=== PATIENT | female | born 1935 | race Caucasian/White ===

== ENCOUNTER 2022-04-11 09:36 | Outpatient (CLI) | payer MEDICARE, SELFPAY ==
[2022-04-11 11:56] LABS: Basophils Absolute Auto 0.1 K/mm3 (0.0-0.1); Basophils Percent Auto 0.9 % (0.2-1.2); Eosinophils Absolute Auto 0.5 K/mm3 (0-0.3); Eosinophils Percent Auto 6.6 % (0-4.4); Hematocrit 46.1 % (37.0-47.0); Hemoglobin 14.6 g/dL (12.0-15.0); Immature Granulocyte Absolute 0.02 K/mm3 (0.00-0.031); Immature Granulocyte Percent A 0.3 % (0-0.5); Lymphocytes Absolute Auto 1.72 K/mm3 (0.9-3.2); Mean Corpuscular HGB Conc 31.7 g/dl (32-36); Mean Corpuscular Volume 94.9 fl (80-100); Mean Platelet Volume 10.4 fl (7.4-10.4); Monocytes Absolute Auto 0.8 K/mm3 (0.1-0.6); Monocytes Percent Auto 10.5 % (2.6-8.5); Neutrophils Absolute Auto 4.7 K/mm3 (1.3-6.7); Neutrophils Percent Auto 59.7 % (45.5-73.1); Platelet Count Result 254 k/mm3 (150-375); Red Blood Count 4.86 M/mm3 (4.2-5.4); Red Cell Distribution Width 12.8 % (11.5-14.5); White Blood Count 7.8 K/mm3 (4.5-10.0)
[2022-04-11 12:09] LABS: Albumin Level 4.1 g/dL (3.5-5.1); Anion Gap 13 mmol/L (8-16); Blood Urea Nitrogen 12 mg/dL (7-17); Carbon Dioxide 27 mmol/L (22-30); Chloride 103 mmol/L (98-107); Estimated Glomerular Filt Rate > 60; Glucose 96 mg/dL (65-110); Sodium 143 mmol/L (137-145)
[2022-04-11 12:37] LABS: Hemoglobin A1C 5.8 % (<5.7)
[2022-04-11 12:39] LABS: Urine Cotinine NEGATIVE
== END 2022-04-11 09:37 | disposition home or self-care (01) ==
PROVIDERS: PCP Pediatrics; Visit Provider Orthopaedic Surgery
DX: M17.11 Unilateral primary osteoarthritis, right knee (principal); Z01.818 Encounter for other preprocedural examination
CPT/HCPCS: 80048; 80307; 82040; 83036; 85025; 87081

== ENCOUNTER 2022-04-30 01:32 | Day surgery (SDC) | payer MEDICARE, SELFPAY ==
[2022-04-11 10:23] VITALS: BP 171/87; PULSE 90; RESP 16; TEMP 37.4; O2SAT 97; BMI 25.7
--- NOTE | 2022-04-11 10:47 | PC.NURSE ---
Report to the Outpatient Waiting Room, entrance under the green pavilion located off [facility], at time __10:00AM on date __04/30/22 . Planned Procedure Time: _12:00PM . Time changes happen often and if your time is changed the preop area will call you the afternoon before. - You and your visitor will be asked to self-screen and do not enter if you have any COVID symptoms. - We encourage only one visitor and NO visitors under age 16 are allowed at this time. Your visitor will receive communication by the phone number that is given day of service. - The patient visitor is requested to social distance or may leave the building when not with patient due to restrictions. - A mask is required within the hospital. Patients may have clear liquids (water, carbonated beverages, clear teas, apple juice) until 3 hours prior to surgery with a maximum of 20 ounces. - No food from midnight until time of surgery Take the following medications with a SIP of water the morning of surgery: ___TYLENOL NEEDED Medications to discontinue per physician __HOLD EXCEDRIN, ALEVE AND ALL VITAMINS/SUPPLEMENTS 7 DAYS PRE-OP PER DR VINCENT Date to take last dose____04/23/22 Please no make-up, nail kosovan, hairspray, perfume, deodorant, or body powder the day of surgery. No jewelry (including any body piercings) or valuables the day of surgery, leave them at home. Please take a shower or bath the night before, or the morning of, surgery with an antibacterial soap. Wear comfortable, loose fitting clothing. Children are encouraged to wear pajamas. - Jewelry must be removed prior to entering the operating room. Rings and piercings that are not removed may be cut off. - The hospital will not accept responsibility for valuables. - Please leave all valuables, including medications, at home the day of surgery. If you are going home after surgery, a licensed sprinkling truck driver must drive you home. - NO public transportation without another adult. - We recommend that an adult stay with you for 24 hours following discharge. - We also recommend that you do not drive, make important decision, drink alcoholic beverages, or take any drugs that were not prescribed by your health care provider for at least 24 hours after your discharge time. Follow any additional instructions given to you from your surgeon. If you or anyone in your household have experienced Covid symptoms in the past week, please notify your surgeon or the nurse liaison at the phone number below for possible testing. Telephone instructions given to _PATIENT and asked if any additional questions and then verbalized understanding. Patient advised to call surgeon office or pre surgery nurse liaison [phone] if any additional questions. If you or anyone in your household have experienced Covid symptoms in the past week, please notify your surgeon or the nurse liaison at the phone number below for possible testing. Telephone instructions given to and asked if any additional questions and then verbalized understanding. Patient advised to call surgeon office or pre surgery nurse liaison [phone] if any additional questions.
[2022-04-30] VITALS (14 sets, daily range): BP systolic 99–160; BP diastolic 40–76; PULSE 80–101; RESP 8–20; TEMP 36.7–37.7; O2SAT 90–98
--- NOTE | ~2022-04-30 | XR_ITS ---
EXAMINATION: XR knee RT 2V DATE: 04/30/2022 15:43 INDICATION: Postoperative evaluation following right total knee arthroplasty. TECHNIQUE: Anteroposterior and lateral views of the right knee were obtained. COMPARISON: None. FINDINGS: Right total knee arthroplasty without patellar resurfacing appears well seated and in near anatomic a lignment. No fractures identified. Expected postoperative subcutaneous and intra-articular gas. IMPRESSION: 1. Right total knee arthroplasty, negative for postoperative purposes. Reviewed, dictated and finalized at location B. EY OPERATOR
--- NOTE | 2022-04-30 07:31 | WPDANESEPPF ---
Anes - Initial Pre Proc Eval Procedure: Operation Date: 04/30/22 12:00 Proposed Procedures p Right Total Knee Arthroplasty - Jose A Hernandez MD Date/Time: 04/30/22 07:31 Surgeon: Jose A Hernandez MD Pre Op Diagnosis: OA Right Knee Patient Data Age: 86 Gender: F Height: 1.68 m Weight: 72.5 kg Last Vital Signs Temp 37.4 C 04/11/22 10:23 Pulse 90 04/11/22 10:23 Resp 16 04/11/22 10:23 BP 171/87 H 04/11/22 10:23 Pulse Ox 97 04/11/22 10:23 O2 Del Method Room Air 04/11/22 10:23 Allergies Allergy/AdvReac Type Severity Reaction Status Date / Time amoxicillin Allergy Mild Rash Verified 04/30/22 10:11 clavulanic acid Allergy Mild Rash Verified 04/30/22 10:11 [From Augmentin] iohexol Allergy Mild Hives Verified 04/30/22 10:11 [From contrast - CT, X-RAY] cephalexin AdvReac Mild YEAST Verified 04/30/22 10:11 INFECTION Home Medications Medication Instructions Recorded Confirmed Type L.acidophilus,rhamnosus-B.breve-S.thermophilus 2 tablet PO DAILY 04/11/22 04/30/22 History 3 billion cell chew tab acetaminophen 500 mg tablet 1,000 mg PO Q6H PRN Pain 04/11/22 04/30/22 History acetaminophen 650 mg 650 mg PO Q12H PRN Pain 04/11/22 04/30/22 History tablet,extended release (Tylenol Arthritis Pain) amitriptyline 10 mg tablet 20 mg PO HS 04/11/22 04/30/22 History acexepg-xclqowqzvgxpf-orswplxu 250 2 tablet PO Q4-6H PRN Pain 04/11/22 04/30/22 History mg-250 mg-65 mg tablet (Excedrin Migraine) calcium 600 mg capsule 600 mg PO BID 04/11/22 04/30/22 History calcium carbonate 200 mg calcium 200 mg PO BID PRN Indigestion 04/11/22 04/30/22 History (500 mg) chewable tablet (Tums) coenzyme Q10 200 mg capsule (Co 200 mg PO DAILY 04/11/22 04/30/22 History Q-10) docusate sodium 100 mg capsule 300 mg PO DAILY PRN Constipation 04/11/22 04/30/22 History (Stool Softener) elderberry fruit 200 mg capsule 100 mg PO BID 04/11/22 04/30/22 History inulin 2.5 gram chewable tablet 5 g PO DAILY 04/11/22 04/30/22 History magnesium 200 mg tablet 400 mg PO DAILY 04/11/22 04/30/22 History naproxen sodium 220 mg capsule 440 mg PO BID PRN Pain 04/11/22 04/30/22 History (Aleve) omega 3-jnj-flp-fish oil 1,000 mg 1 cap PO DAILY 04/11/22 04/30/22 History (120 mg-180 mg) capsule (Fish Oil) omeprazole 20 mg capsule,delayed 20 mg PO BID 04/11/22 04/30/22 History release simvastatin 20 mg tablet 30 mg PO DAILY 04/11/22 04/30/22 History Patient hx anesthesia problems: none Family hx anesthesia problems: none Results Review: All pre-operative results and documents have been reviewed as part of the pre-operative evaluation. [facility] Past Medical History Medical History (Updated 04/30/22 @ 07:33 by Nader Brooks MD) Arthritis Chronic GERD Hyperlipidemia Social History Social History Smoking packs per day: 0.5 Smoking cigarettes per day: 10.0 Years smoked: 12 Smoking pack-years: 6.00 Smoking status: Former smoker Tobacco type: cigarettes Smoking end date: 12/14/95 Alcohol intake: current Substance use: never Living arrangements: alone Spiritual care concerns: No Anes - Eval Final PreProcedure Day of Procedure 04/30/22 07:31 Patient weight: normal Heart: regular rate and rhythm Lungs: clear to auscultation and normal air movement Airway: Mallampati scale class II Neurological: alert and oriented Last oral intake: >/= 8 hours ASA classification: II Emergent: no Anesthetic plan: proceed Anesthesia type and monitoring: general LMA Results Review: All pre-operative results and documents have been reviewed as part of the pre-operative evaluation. Informed Consent: The patient's anesthetic plan and its attendant risks and benefits were discussed with the patient/family/POA. Questions were solicited and answers provided to the satisfaction of the patient/family/POA.
--- NOTE | 2022-04-30 07:45 | PM.IMHP ---
H&P: HPI History of Present Illness Date/Time: 04/30/22 07:45 Chief Complaint: Right knee DJD Narrative: 86-year-old female who presents today for right total knee arthroplasty. She has been having pain in the right knee for years. 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 She had a cortisone injection in the knee in November she has also been on anti-inflammatories for long period time. She has not had satisfactory improvement her symptoms. She has severe medial compartment osteoarthritis in the right knee. She feels she would rather proceed with total knee arthroplasty at this point continue nonsurgical treatment Review of Systems Review of Systems: All systems reviewed & are unremarkable except as noted in HPI and below PMFSH Past Medical History Medical History (Updated 04/30/22 @ 07:33 by Nader Brooks MD) Arthritis Chronic GERD Hyperlipidemia Social History Social History Smoking packs per day: 0.5 Smoking cigarettes per day: 10.0 Years smoked: 12 Smoking pack-years: 6.00 Smoking status: Former smoker Tobacco type: cigarettes Smoking end date: 12/14/95 Alcohol intake: current Substance use: never Living arrangements: alone Spiritual care concerns: No Meds Home Medications and Allergies Home Medications Medication Instructions Recorded Confirmed Type L.acidophilus,rhamnosus-B.breve-S.thermophilus 2 tablet PO DAILY 04/11/22 04/30/22 History 3 billion cell chew tab acetaminophen 500 mg tablet 1,000 mg PO Q6H PRN Pain 04/11/22 04/30/22 History acetaminophen 650 mg 650 mg PO Q12H PRN Pain 04/11/22 04/30/22 History tablet,extended release (Tylenol Arthritis Pain) amitriptyline 10 mg tablet 20 mg PO HS 04/11/22 04/30/22 History fjpptor-cdkvodbaqbnth-qxqbwknq 250 2 tablet PO Q4-6H PRN Pain 04/11/22 04/30/22 History mg-250 mg-65 mg tablet (Excedrin Migraine) calcium 600 mg capsule 600 mg PO BID 04/11/22 04/30/22 History calcium carbonate 200 mg calcium 200 mg PO BID PRN Indigestion 04/11/22 04/30/22 History (500 mg) chewable tablet (Tums) coenzyme Q10 200 mg capsule (Co 200 mg PO DAILY 04/11/22 04/30/22 History Q-10) docusate sodium 100 mg capsule 300 mg PO DAILY PRN Constipation 04/11/22 04/30/22 History (Stool Softener) elderberry fruit 200 mg capsule 100 mg PO BID 04/11/22 04/30/22 History inulin 2.5 gram chewable tablet 5 g PO DAILY 04/11/22 04/30/22 History magnesium 200 mg tablet 400 mg PO DAILY 04/11/22 04/30/22 History naproxen sodium 220 mg capsule 440 mg PO BID PRN Pain 04/11/22 04/30/22 History (Aleve) omega 7-kqk-dzk-fish oil 1,000 mg 1 cap PO DAILY 04/11/22 04/30/22 History (120 mg-180 mg) capsule (Fish Oil) omeprazole 20 mg capsule,delayed 20 mg PO BID 04/11/22 04/30/22 History release simvastatin 20 mg tablet 30 mg PO DAILY 04/11/22 04/30/22 History Allergies Allergy/AdvReac Type Severity Reaction Status Date / Time amoxicillin Allergy Mild Rash Verified 04/30/22 10:11 clavulanic acid Allergy Mild Rash Verified 04/30/22 10:11 [From Augmentin] iohexol Allergy Mild Hives Verified 04/30/22 10:11 [From contrast - CT, X-RAY] cephalexin AdvReac Mild YEAST Verified 04/30/22 10:11 INFECTION Exam Narrative: 86-year-old female alert pleasant. She appears younger than her stated age. She is 5 ft 6 and 158 lb. She has mild effusion right knee. Range of motion is 0-135 degrees. Hip range motion is full without discomfort. Moderate tenderness over the medial joint line to palpation. No swelling either lower extremity. 2+ dorsalis pedis and posterior artery pulse. Normal quad strength. She has normal sensation right lower extremity. Resp: Auscultation: clear to auscultation bilaterally Cardio: Rate: regular rate Rhythm: regular rhythm Assessment and Plan Assessment and plan (1) Arthritis: Code(s)
[2022-04-30] MEDS: LACTATED RINGERS 1,000 ML 30 ML IV CONT ×2 (10:45→15:15)
[2022-04-30] MEDS: TRANEXAMIC ACID 1,000MG/ISO100 1,000 MG/100 ML BAG 200 MG IVPB (11:50)
--- NOTE | 2022-04-30 11:53 | WPDHPUPDATE1 ---
History and Physical Update Update Date/Time: 04/30/22 11:53 History and Physical has been reviewed, including an updated exam of the patient. There are NO changes in the patient's condition. Risks, benefits, and alternatives have been discussed and questions answered. Patient agrees to proceed with procedure.
[2022-04-30] MEDS: ceFAZolin 2 GM/D5W 50 ML 2 GM/50 ML BAG IVPB (12:32)
[2022-04-30] MEDS: ceFAZolin SODIUM 1 GM VIAL 3 GM (12:49)
[2022-04-30] MEDS: GENTAMICIN BONE CEMENT REFOBACIN 1 EACH TOPICAL (13:54)
[2022-04-30] MEDS: TRANEXAMIC ACID 1,000 MG/10 ML AMPUL 1000 MG IV PUSH (14:05)
[2022-04-30] MEDS: ceFAZolin SODIUM 1 GM VIAL IV PUSH (14:06)
--- NOTE | 2022-04-30 14:59 | W.PM.PROC2 ---
Procedure Note - Detailed Date of Procedure 04/30/22 Pre-op Diagnosis OA Right Knee Post-op Diagnosis Same Procedure Performed Right total knee arthroplasty Surgeon Jose A Hernandez MD Print Decorator Reanna Anesthesia General Description of Procedure Patient was brought to the operating room and general anesthesia was administered. She received 2 g of Ancef weight based vancomycin 1 g of tranexamic acid preoperatively in the right knee prepped draped usual fashion. Limb was exsanguinated tourniquet elevated to 250 mmHg. A 7 in longitudinal midline incision was used and a vastus medialis splitting approach utilized splitting the vastus medialis at the superior pole of patella. Cartilage on the patella was normal no osteophytes I felt was optimal for non resurfacing. Infrapatellar and suprapatellar fat pads were excised the quadriceps synovectomy carried out. A guide víctor was inserted down the femoral canal after aspiration of canal contents using the 5 degree valgus cutting bushing 9 mm of bone removed the distal femur. This removed about 7 lateral side. Next the tibial plateau was cut. We made a skim cut off the low point of the medial tibial plateau. Cut was made perpendicular to the axis of the tibia. This could remnants were excised the PCL was recessed. She did not have a flexion contracture so we did not release posterior capsule. Flexion gap measured a tight 8 mm medially 12 mm laterally at 90?. The femoral sizing guide was applied set at 5? of external rotation which matched Whitesides line. Posterior referencing pinholes were placed and the size 65 cutting block applied AP and chamfer cuts were made and this gave us a line to line cut medial to lateral and anterior to posterior. With trialing the tibial trial with the 10 CR was too tight in flexion medially. 2 mm of play laterally at 90?. I reassessed the tibial alignment and at this point I felt we were in about 1 degree of valgus. There reapplied the tibial cutting guide and introduced a degree of varus compared to the previous cut an additional mm of bone was removed from the medial tibial plateau transitioning this the lateral plateau. We then sized the tibia to a 71 vanguard which fit line to line posterolateral to anteromedial at proper rotation. The bone was osteopenic at the lateral margin of the tibial plateau otherwise bone quality was very good. We confirmed that this gave us anatomic alignment of the tibial tray. This was punched we trialed with the size 10 insert which had appropriate stability to anterior drawer at 90? with 1 mm lateral opening and medial opening and gravity flexion 140 and the knee came out to full extension with negative bounce with about 1/2 mm of both medial and lateral opening on valgus or varus stress respectively. Patellar tracking was near perfect. Lug holes were drilled in the femoral component trial. The trials were removed and the femur was reapplied in residual posterior femoral bone removed. The bony surfaces were thoroughly irrigated and dried. Using 2 batches of methylmethacrylate 1 with gentamicin powder the cement was immediately applied to the tibial tray then the femoral component. Cement applied the tibia pressurized tibial component fully seated the cement applied to the femur the femoral component fully seated the knee brought to extension with 11 mm 5 1 insert for pressurization the tourniquet released at 84 minutes. After cement hardening excess cement was sought for removed hemostasis was achieved. We trialed the 10 which gave full extension appropriate anterior drawer stability at 90? and central patellar tracking all the way back to 140. The 10 insert was placed without difficulty locked it with the locking pin range of motion stability reconfirmed. Patellar tracking was excellent throughout range of motion. Local anesthetic cocktail was injected. Arthrotomy was closed with 2. Vicryl so at which time we reassessed range of motion
[2022-04-30] MEDS: fentaNYL CITRATE INJ (*CRX) 100 MCG/2 ML VIAL 25 MCG IV PUSH ×4 (15:43→16:30)
--- NOTE | 2022-04-30 15:43 | SUR.PHASEI ---
1530 xrays right knee done.
[2022-04-30] MEDS: PROPARACAINE HCL 0.5% 15 ML OPHTH SOLN 1 DROP EACH EYE (16:22)
[2022-04-30] MEDS: DICLOFENAC SODIUM 0.1% OPHTH SOLN 2.5 ML BOTTLE 1 DROP EACH EYE (16:23)
[2022-04-30] MEDS: ARTIFICIAL TEARS OPHTH SOLN 15 ML BOTTLE 1 DROP EACH EYE ×2 (16:24→18:10)
--- NOTE | 2022-04-30 16:27 | SUR.PHASEI ---
1615 pt complains eye irritation,with redness to bilateral eyes. called dr davis and corneal abrasion protocol ordered.
--- NOTE | 2022-04-30 17:37 | ADMGEN ---
This patient, Katey Villarreal, was admitted to 2 Medical Room 256-. Patient/family oriented to hospital policies and general routines including ID bracelet, bed and alarms, visiting hours, pain management, procedures, bathroom and other care routines, personal items, smoking policy, room service/diet, and visiting hours. Information on how to activate the Rapid Response Team has been discussed. Patient/Family are encouraged to report perceived risks to care and to ask questions if they do not understand what they are told or what they should do.
[2022-04-30] MEDS: oxyCODONE HCL (*CRX) 2.5 MG TAB IR PO ×2 (18:03→20:49)
[2022-04-30] MEDS: SODIUM CHLORIDE 0.9% IV 1,000 ML 125 ML IV CONT (18:03)
[2022-04-30] MEDS: ACETAMINOPHEN 500 MG TABLET 1000 MG PO (18:03)
[2022-04-30] MEDS: PANTOPRAZOLE 40 MG TABLET PO (18:04)
[2022-04-30] MEDS: SENNA/DOCUSATE SODIUM TABLET 2 TAB PO (18:04)
--- NOTE | 2022-04-30 20:01 | PM.IMCN ---
Assessment and Plan Assessment and plan (1) Arthritis: Code(s): M19.90 - Unspecified osteoarthritis, unspecified site Status: Acute Assessment and Plan: Status post right TKA Pain control DVT prophylaxis per surgery (2) Chronic GERD: Code(s): K21.9 - Gastro-esophageal reflux disease without esophagitis Status: Acute Assessment and Plan: Continue Protonix (3) Hyperlipidemia: Code(s): E78.5 - Hyperlipidemia, unspecified Status: Acute Assessment and Plan: Continue simvastatin (4) Conjunctivitis: Code(s): H10.9 - Unspecified conjunctivitis Status: Acute Assessment and Plan: Eye ointment and eye drops as needed (5) Elevated hemoglobin A1c: Code(s): R73.09 - Other abnormal glucose Status: Acute Assessment and Plan: A1c is 5.8 mildly elevated monitor follow-up as outpatient with PCP HPI Data of Consult Consult date: 04/30/22 Requesting Physician: Jose A Hernandez MD Primary Care Provider: Brad Mercedes MD Consult Narrative Narrative: Katey Villarreal is a 86 year old female with past medical history of hyperlipidemia GERD presented to the hospital with right knee pain and right TKA tolerated well patient currently complains of photophobia and burning in the eyes bilateral denies any visual loss most likely patient has exposure conjunctivitis started eye ointment and eye drops Review of Systems Review of Systems: Twelve system review was negative except above PMFSH Past Medical History Medical History Arthritis Chronic GERD Hyperlipidemia Social History Social History Smoking packs per day: 0.5 Smoking cigarettes per day: 10.0 Years smoked: 15 Smoking pack-years: 7.50 Smoking status: Former smoker Tobacco type: cigarettes Smoking end date: 12/14/95 Alcohol intake: never Substance use: never Substance use type: does not use Lack of Transportation: No Lack of Food: Never True Current Housing: I Have Housing Concerned About Future Housing: No Difficulty Paying Gas/Electric Bills: No Difficulty Paying for Meds: No Currently Unemployed: No Education: High School Diploma/GED Difficulty w/ Childcare or Family Care: No Living arrangements: alone Spiritual care concerns: No Meds Home Medications and Allergies Home Medications Medication Instructions Recorded Confirmed Type L.acidophilus,rhamnosus-B.breve-S.thermophilus 2 tablet PO DAILY 04/11/22 04/30/22 History 3 billion cell chew tab acetaminophen 500 mg tablet 1,000 mg PO Q6H PRN Pain 04/11/22 04/30/22 History acetaminophen 650 mg 650 mg PO Q12H PRN Pain 04/11/22 04/30/22 History tablet,extended release (Tylenol Arthritis Pain) amitriptyline 10 mg tablet 20 mg PO HS 04/11/22 04/30/22 History bpuvbru-lqcpqzlemtjzu-emwhvrms 250 2 tablet PO Q4-6H PRN Pain 04/11/22 04/30/22 History mg-250 mg-65 mg tablet (Excedrin Migraine) calcium 600 mg capsule 600 mg PO BID 04/11/22 04/30/22 History calcium carbonate 200 mg calcium 200 mg PO BID PRN Indigestion 04/11/22 04/30/22 History (500 mg) chewable tablet (Tums) coenzyme Q10 200 mg capsule (Co 200 mg PO DAILY 04/11/22 04/30/22 History Q-10) docusate sodium 100 mg capsule 300 mg PO DAILY PRN Constipation 04/11/22 04/30/22 History (Stool Softener) elderberry fruit 200 mg capsule 100 mg PO BID 04/11/22 04/30/22 History inulin 2.5 gram chewable tablet 5 g PO DAILY 04/11/22 04/30/22 History magnesium 200 mg tablet 400 mg PO DAILY 04/11/22 04/30/22 History naproxen sodium 220 mg capsule 440 mg PO BID PRN Pain 04/11/22 04/30/22 History (Aleve) omega 5-row-tkv-fish oil 1,000 mg 1 cap PO DAILY 04/11/22 04/30/22 History (120 mg-180 mg) capsule (Fish Oil) omeprazole 20 mg capsule,delayed 20 mg PO BID 04/11/22 04/30/22 History re
[2022-04-30] MEDS: AMITRIPTYLINE HCL 10 MG TABLET 20 MG PO (20:49)
[2022-04-30] MEDS: MINERAL OIL/WHITE PETROLATUM OINTMENT 1 APPLIC EACH EYE (20:49)
[2022-05-01] MEDS: oxyCODONE HCL (*CRX) 2.5 MG TAB IR PO ×4 (00:16→12:19)
[2022-05-01] MEDS: ACETAMINOPHEN 500 MG TABLET 1000 MG PO ×3 (00:16→11:53)
[2022-05-01 00:29] VITALS: BP 141/55; PULSE 90; RESP 16; TEMP 36.9; O2SAT 96
[2022-05-01 04:00] VITALS: PULSE 87
[2022-05-01] MEDS: DICLOFENAC SODIUM 0.1% OPHTH SOLN 2.5 ML BOTTLE 1 DROP EACH EYE (04:50)
[2022-05-01 04:53] VITALS: BP 142/58; PULSE 79; RESP 16; TEMP 36.4; O2SAT 94
[2022-05-01 06:47] LABS: Basophils Absolute Auto 0.1 K/mm3 (0.0-0.1); Basophils Percent Auto 0.4 % (0.2-1.2); Eosinophils Absolute Auto 0.2 K/mm3 (0-0.3); Eosinophils Percent Auto 1.2 % (0-4.4); Hematocrit 38.1 % (37.0-47.0); Hemoglobin 12.2 g/dL (12.0-15.0); Immature Granulocyte Absolute 0.05 K/mm3 (0.00-0.031); Immature Granulocyte Percent A 0.4 % (0-0.5); Lymphocytes Absolute Auto 1.99 K/mm3 (0.9-3.2); Lymphocytes Percent Auto 15.1 % (18.3-44.2); Mean Corpuscular Hemoglobin 29.6 pg (26-34); Mean Corpuscular Volume 92.5 fl (80-100); Mean Platelet Volume 10.7 fl (7.4-10.4); Monocytes Absolute Auto 1.2 K/mm3 (0.1-0.6); Monocytes Percent Auto 9.4 % (2.6-8.5); Neutrophils Absolute Auto 9.7 K/mm3 (1.3-6.7); Neutrophils Percent Auto 73.5 % (45.5-73.1); Platelet Count Result 214 k/mm3 (150-375); Red Blood Count 4.12 M/mm3 (4.2-5.4); Red Cell Distribution Width 13.1 % (11.5-14.5); White Blood Count 13.1 K/mm3 (4.5-10.0)
[2022-05-01 07:07] LABS: Anion Gap 11 mmol/L (8-16); Blood Urea Nitrogen 8 mg/dL (7-17); Calcium 8.5 mg/dL (8.4-10.2); Carbon Dioxide 26 mmol/L (22-30); Chloride 103 mmol/L (98-107); Estimated CRCL calculation 55 ml/min; Estimated Glomerular Filt Rate > 60; Glucose 95 mg/dL (65-110); Potassium 3.2 mmol/L (3.4-5.0); Sodium 140 mmol/L (137-145)
--- NOTE | 2022-05-01 07:18 | PM.PNORT ---
Subjective Subjective Date/Time Seen: 05/01/22 07:18 postop day 1 patient is alert. Vital signs are stable. Her pain is well controlled. She has been up multiple times To the restroom overnight. Dressing is dry and intact. Patient is able to raise her leg off the bed. Minimal swelling in the knee noted. Morning labs are noted. This point patient is doing well. She will work with physical therapy if she continues do well we will plan discharge to home this afternoon Objective Data Vital Signs Vital Signs: Vital Signs - 24 hr 04/30/22 10:06 04/30/22 15:15 04/30/22 15:30 Temperature 37.3 C 36.7 C Pulse Rate 88 80 84 Respiratory Rate 20 16 14 Blood Pressure 156/76 H 99/40 L 131/55 L Pulse Oximetry 97 98 98 Oxygen Delivery Room Air Simple Face Mask Simple Face Mask Oxygen Flow Rate 10 10 04/30/22 15:45 04/30/22 16:00 04/30/22 16:15 Temperature Pulse Rate 90 91 89 Respiratory Rate 13 18 8 L Blood Pressure 144/60 H 150/70 H 145/62 H Pulse Oximetry 93 95 94 Oxygen Delivery Room Air Room Air Room Air Oxygen Flow Rate 04/30/22 16:30 04/30/22 16:48 04/30/22 17:00 Temperature Pulse Rate 100 93 94 Respiratory Rate 16 20 15 Blood Pressure 143/61 H 145/61 H 144/59 H Pulse Oximetry 93 96 93 Oxygen Delivery Room Air Room Air Room Air Oxygen Flow Rate 04/30/22 18:14 04/30/22 17:33 04/30/22 17:57 Temperature 37.7 C H 37.2 C Pulse Rate 94 95 Respiratory Rate 16 16 Blood Pressure 160/65 H 158/66 H Pulse Oximetry 94 90 Oxygen Delivery Room Air Oxygen Flow Rate 04/30/22 18:42 04/30/22 20:00 04/30/22 20:00 Temperature 37.2 C Pulse Rate 101 H 100 100 Respiratory Rate 18 18 Blood Pressure 159/75 H Pulse Oximetry 96 96 Oxygen Delivery Room Air Oxygen Flow Rate 04/30/22 21:59 05/01/22 00:29 05/01/22 04:53 Temperature 36.8 C 36.9 C 36.4 C Pulse Rate 87 90 79 Respiratory Rate 16 16 16 Blood Pressure 125/58 L 141/55 H 142/58 H Pulse Oximetry 95 96 94 Oxygen Delivery Oxygen Flow Rate Intake/Output Intake/Output: Intake & Output 04/28/22 04/29/22 04/30/22 05/01/22 23:59 23:59 23:59 23:59 Intake Total 300 600 Output Total 125 Balance 175 600 Meds/Results Medications: Active Medications Generic Name Dose Route Start Last Admin Trade Name Freq PRN Reason Stop Dose Admin Acetaminophen 1,000 mg 04/30/22 17:12 05/01/22 04:50 Acetaminophen 500 Mg Tablet PO 1,000 mg Q6H ÁNGEL Administration Amitriptyline HCl 20 mg 04/30/22 21:00 04/30/22 20:49 Amitriptyline Hcl 10 Mg Tablet PO 20 mg HS ÁNGEL Administration Apixaban 2.5 mg 05/01/22 09:00 Apixaban 2.5 Mg Tablet PO Q12HR ÁNGEL Artificial Tears 1 drop 04/30/22 16:11 04/30/22 18:10 Artificial Tears Ophth Soln 15 Ml Bottle EACH EYE 1 drop Q2H PRN Administration Dry Eye(s) Celecoxib 100 mg 05/01/22 08:00 Celecoxib 100 Mg Capsule PO DAILY@0800 ÁNGEL Diclofenac Sodium 1 drop 04/30/22 22:00 05/01/22 04:50 Diclofenac Sodium 0.1% Ophth Soln 2.5 Ml Bottle EACH EYE 05/04/22 21:59 1 drop Q8HR ÁNGEL Administration Cefazolin Sodium 1 gm in 50 mls @ 100 mls/hr 04/30/22 22:00 05/01/22 04:50 Ancef 1 Gm/D5w 50 Ml Pm IVPB 05/01/22 14:29 100 mls/hr Q8H ÁNGEL Administration Vancomycin HCl 750 mg in 250 mls @ 250 mls/hr 04/30/22 22:00 05/01/22 00:16 Vancomycin 750 Mg/D5w 250 Ml IVPB 05/01/22 10:59 Infused Q12H ÁNGEL Infusion Lactobacillus Acidophilus 2 tablet 05/01/22 09:00 Acidophilus/Bulgaricus Chewable Tablet PO 05/31/22 08:59 DAILY ÁNGEL Magnesium Oxide 400 mg 05/01/22 09:00 Magnesium Oxide 400 Mg Tablet PO DAILY [facility] Miscellaneous Information 1 each 04/30/22 00:01 Nonformulary Drug (Inulin 2.5 Gram Tablet,Chewable)Can Patient Use From Home? XX 05/30/22 00:00 CLARIFY ÁNGEL Morphine Sulfate 2 mg 04/30/22 17:12 Morphine Sulfate (*Crx) 2 Mg/Ml Inj IV PUSH Q1H PRN Pain Rated 7-10 Multi
--- NOTE | 2022-05-01 07:25 | PM.DS ---
DS: Admitting Diagnosis Discharge Date 05/01 Admitting Diagnosis Right knee DJD DS: Discharge Diagnosis Discharge Diagnosis (1) History of total right knee replacement (TKR): Code(s): Z96.651 - Presence of right artificial knee joint Status: Acute DS: Summary Hospital Course Hospital Course: 86-year-old female who underwent right total knee arthroplasty on 04/30. Underwent the procedure without complications. Postoperatively she has been afebrile vital signs are stable. She is on Eliquis for DVT prophylaxis. She is weight-bearing as tolerated. She is on scheduled Tylenol as well as oxycodone 2.5 mg for pain control. She is also on Celebrex 100 mg a day. Patient was up walking in the room the day of surgery. She was up to the restroom multiple times overnight. Overall pain is very well controlled patient is comfortable and overall doing well. She is going to work with physical therapy 05/01. If she continues do well we will discharge her home later that day. Patient was strongly advised she needs to keep leg elevated at home prevent swelling, she should do her exercises every hour while awake. She has home health that has been set up for her for physical therapy. Patient was advise any questions or concerns she is to call the office otherwise we will see her at her appointment dates Time Spent with Patient Time attestation: Total time spent providing and/or coordinating discharge services: DS: Data Data Completed and Pending Labs on day of discharge: Labs from last 24 hours 05/01/22 05/01/22 04/30/22 05:29 05:29 10:40 WBC 13.1 H RBC 4.12 L Hgb 12.2 Hct 38.1 MCV 92.5 MCH 29.6 MCHC 32.0 RDW 13.1 Plt Count 214 MPV 10.7 H Immature Gran % (Auto) 0.4 Neut % (Auto) 73.5 H Lymph % (Auto) 15.1 L [place] % (Auto) 9.4 H Eos % (Auto) 1.2 Baso % (Auto) 0.4 Lymph # (Auto) 1.99 [place] # (Auto) 1.2 H Eos # (Auto) 0.2 Baso # (Auto) 0.1 Abs Immat Gran (auto) 0.05 H Absolute Neuts (auto) 9.7 H Absolute Nucleated RBC 0.0 Nucleated RBC % 0.0 Sodium 140 Potassium 3.2 L Chloride 103 Carbon Dioxide 26 Anion Gap 11 BUN 8 Creatinine 0.60 L Estim Creat Clear Calc 55 Estimated GFR > 60 Glucose 95 Calcium 8.5 Blood Type O Positive Antibody Screen Negative Discharge Plan Discharge Patient Disposition: Home, Self-Care Discharge Instructions: ARABELLA VINCENT M.D [facility], [place] [id number] [place] [address] POST-OPERATIVE DISCHARGE INSTRUCTIONS TOTAL KNEE ARTHROPLASTY 1. When resting, lie on back with leg elevated above heart to minimize swelling. Significant swelling could indicate a blood clot and if this occurs call the office (or go to the ER) to have a venous ultrasound. 2. Do exercise 5 times a day. 3. Do not sit with leg down except for meals. 4. Wound Care: Nursing will give additional dressings at discharge. Patient to change dressing at home 1 week from surgery, then maintain until seen in office. 5. May shower with dressing in place. 6. Follow weight bearing status instructions. IMPORTANT: Remember not to sit in the chair for more than 30 minutes at a time. As a rule, during the first 14 days after surgery, only sit in the chair to work on the chair knee bending stretch exercise, for meals or for use of the restroom. Sitting in the chair promotes significant swelling in the knee and leg which will make the knee stiff and more painful and which simulates having a blood clot in the veins of the leg. If this type of significant diffuse swelling occurs, an ultrasound at the hospital will be necessary to rule out a blood clot. Be up walking around with the walker for a few minutes every hour while awake and then rest laying on your back on the couch or in bed with your leg elevated on cushions or pillows. Do not rest
--- NOTE | 2022-05-01 08:03 | P.PNAN_ITS ---
Anes - Prog Note Post-Op Date/Time: 05/01/22 08:03 Vital Signs: Last Vital Signs Temp 36.4 C 05/01/22 04:53 Pulse 79 05/01/22 04:53 Resp 16 05/01/22 04:53 BP 142/58 H 05/01/22 04:53 Pulse Ox 94 05/01/22 04:53 O2 Del Method Room Air 04/30/22 20:00 O2 Flow Rate 10 04/30/22 15:30 Pain Score (VAS): 1 I/O: Intake & Output 04/30/22 05/01/22 05/01/22 23:59 07:59 15:59 Intake Total 150 600 Output Total 125 Balance 25 600 Laboratory Tests 05/01/22 05:29 05/01/22 05:29 04/30/22 05/01/22 05/01/22 10:40 05:29 05:29 WBC 13.1 H RBC 4.12 L Hgb 12.2 Hct 38.1 MCV 92.5 MCH 29.6 MCHC 32.0 RDW 13.1 Plt Count 214 MPV 10.7 H Immature Gran % (Auto) 0.4 Neut % (Auto) 73.5 H Lymph % (Auto) 15.1 L [place] % (Auto) 9.4 H Eos % (Auto) 1.2 Baso % (Auto) 0.4 Lymph # (Auto) 1.99 [place] # (Auto) 1.2 H Eos # (Auto) 0.2 Baso # (Auto) 0.1 Abs Immat Gran (auto) 0.05 H Absolute Neuts (auto) 9.7 H Absolute Nucleated RBC 0.0 Nucleated RBC % 0.0 Sodium 140 Potassium 3.2 L Chloride 103 Carbon Dioxide 26 Anion Gap 11 BUN 8 Creatinine 0.60 L Estim Creat Clear Calc 55 Estimated GFR > 60 Glucose 95 Calcium 8.5 Blood Type O Positive Antibody Screen Negative Patient Feedback: Patient satisfied with anesthetic care. Other Findings: Pt reports bilteral eyes were hurting when she awoke, but after eye drops the pain has subsided.
[2022-05-01] MEDS: CELECOXIB 100 MG CAPSULE PO (09:16)
[2022-05-01] MEDS: ACIDOPHILUS/BULGARICUS CHEWABLE TABLET 2 TABLET PO (09:16)
[2022-05-01] MEDS: SENNA/DOCUSATE SODIUM TABLET 2 TAB PO (09:16)
[2022-05-01] MEDS: polyethylene glycoL 3350 17 GM POWD.PACK PO (09:16)
[2022-05-01] MEDS: APIXABAN 2.5 MG TABLET PO (09:16)
[2022-05-01] MEDS: SIMVASTATIN 10 MG TABLET 30 MG PO (09:17)
[2022-05-01] MEDS: MAGNESIUM OXIDE 400 MG TABLET PO (09:17)
[2022-05-01] MEDS: PANTOPRAZOLE 40 MG TABLET PO (09:17)
[2022-05-01 10:00] VITALS: BP 115/42; PULSE 85; RESP 16; TEMP 36.9; O2SAT 92
--- NOTE | 2022-05-01 13:43 | PC.NURSE ---
On 05/01/22, the student, [Carla Cunningham], provided care and completed [facility] documentation on this patient. I have reviewed the student's documentation and agree with the findings.
--- NOTE | 2022-05-01 15:57 | PM.IMPN ---
Progress Note: A&P Assessment and Plan (1) Arthritis: Code(s): M19.90 - Unspecified osteoarthritis, unspecified site Status: Acute Assessment and Plan: Status post right TKA POD1 Pain control DVT prophylaxis and management per Orthopedics (2) Chronic GERD: Code(s): K21.9 - Gastro-esophageal reflux disease without esophagitis Status: Chronic Assessment and Plan: Chronic, stable. continue Protonix (3) Hyperlipidemia: Qualifiers: Hyperlipidemia type: mixed hyperlipidemia Qualified Code(s): E78.2 - Mixed hyperlipidemia Code(s): E78.5 - Hyperlipidemia, unspecified Status: Chronic Assessment and Plan: Chronic, stable. continue simvastatin (4) Conjunctivitis: Qualifiers: Conjunctivitis type: acute Acute conjunctivitis type: unspecified Laterality: bilateral Qualified Code(s): H10.33 - Unspecified acute conjunctivitis, bilateral Code(s): H10.9 - Unspecified conjunctivitis Status: Acute Assessment and Plan: Eye ointment and eye drops as needed Stable, no visual disturbances (5) Elevated hemoglobin A1c: Code(s): R73.09 - Other abnormal glucose Status: Acute Assessment and Plan: A1c is 5.8 mildly elevated monitor follow-up as outpatient with PCP Plan Thank you for allowing us to participate in patient's care. Do not hesitate to call for any questions or concerns. Time Spent With Patient Time with patient: 15 - 25 minutes Subjective Date/time seen: 05/01/22 15:57 Interval history: No new complaints. She has been working with physical therapy and ambulating in the hallway with a front wheeled walker. pain is controlled on Oxy-IR scheduled. Nursing notes reviewed and no overnight events. Review of Systems Review of Systems: All systems reviewed & are unremarkable except as noted in HPI and below Exam Narrative: General: No acute distress.? Non-toxic. Mental Status/Psych: Awake, alert and oriented x3. Neutral mood and affect. cooperative. Skin: Skin fair, warm, without rashes. Right knee dressing intact. Good turgor.? HEENT: Normocephalic. Sclera is non-icteric. Pupils equal and round. Grossly normal hearing. Oral mucosa pink and moist. Heart: S1 and S2 regular rate and rhythm. Chest: Respirations even and unlabored. Lung sounds are clear to auscultation in all lobes bilaterally. Abdomen: Soft, non-tender to palpation.? Extremities:? Moves all extremities equally. Neurological: No focal deficits Objective Data Vital Signs Vital Signs: Vital Signs - 24 hr 04/30/22 16:00 04/30/22 16:15 04/30/22 16:30 Temperature Pulse Rate 91 89 100 Respiratory Rate 18 8 L 16 Blood Pressure 150/70 H 145/62 H 143/61 H Pulse Oximetry 95 94 93 Oxygen Delivery Room Air Room Air Room Air 04/30/22 16:48 04/30/22 17:00 04/30/22 18:14 Temperature Pulse Rate 93 94 Respiratory Rate 20 15 Blood Pressure 145/61 H 144/59 H Pulse Oximetry 96 93 Oxygen Delivery Room Air Room Air Room Air 04/30/22 17:33 04/30/22 17:57 04/30/22 18:42 Temperature 99.8 F H 98.9 F 99.0 F Pulse Rate 94 95 101 H Respiratory Rate 16 16 18 Blood Pressure 160/65 H 158/66 H 159/75 H Pulse Oximetry 94 90 96 Oxygen Delivery 04/30/22 20:00 04/30/22 20:00 04/30/22 21:59 Temperature 98.3 F Pulse Rate 100 100 87 Respiratory Rate 18 16 Blood Pressure 125/58 L Pulse Oximetry 96 95 Oxygen Delivery Room Air 05/01/22 00:29 05/01/22 04:53 05/01/22 04:00 Temperature 98.4 F 97.6 F Pulse Rate 90 79 87 Respiratory Rate 16 16 Blood Pressure 141/55 H 142/58 H Pulse Oximetry 96 94 Oxygen Delivery 05/01/22 08:38 05/01/22 09:56 05/01/22 09:10 Temperature Pulse Rate Respiratory Rate Blood Pressure Pulse Oximetry Oxygen Delivery Room Air Room Air Room Air 05/01/22 10:00 Temperature 98.5 F Pulse Rate 85 Respiratory Rate 16 Blood Pressure 115/42 L Pulse Oxime
== END 2022-05-01 15:07 | disposition home health service (06) ==
LOC: ANHSURGERY 09:39 → ANH2MED 17:17
PROVIDERS: PCP Pediatrics; Visit Provider Orthopaedic Surgery
PROC: (CPT 27447; principal; 2022-04-30 12:00)
DX: M17.11 Unilateral primary osteoarthritis, right knee (principal); H10.9 Unspecified conjunctivitis; R73.09 Other abnormal glucose; E78.5 Hyperlipidemia, unspecified; K21.9 Gastro-esophageal reflux disease without esophagitis; Z87.891 Personal history of nicotine dependence
CPT/HCPCS: 27447; 36415; 73560; 80048; 85025; 86850; 86900; 86901; 97110; 97116; 97161; 97165; 97530; 97535; A9270; C1713; C1776; J0171; J0690; J1100; J1885; J2270; J2405; J2704; J2795; J3010; J3370; J7030; J7120